=== PATIENT | female | born 1990 | race Caucasian/White ===

== ENCOUNTER 2018-11-15 10:49 | Emergency (ER) | payer MEDICAID ==
[~2018-11-15 10:49] MED LIST: CIPR2.5D18 RIGHTEYE; HYDR-4383 PO; ONDA4TAB12 PO; ONDA4TAB9 SL; OXYC-134 PO
== END 2018-11-15 12:58 | disposition left against medical advice (07) ==
LOC: ER 10:49
DX: L08.9 Local infection of the skin and subcutaneous tissue, unspecified (principal); Z53.21 Procedure and treatment not carried out due to patient leaving prior to being seen by health care provider

== ENCOUNTER 2019-04-18 20:20 | Emergency (ER) | payer MEDICAID ==
[~2019-04-18] VITALS: Ht 175.3 cm; Wt 143.8 kg
[2019-04-18 21:17] LABS: BASOPHILS # (AUTO) 0.1 X10'3 (0-0.2); BASOPHILS % (AUTO) 0.5 % (0-1); EOSINOPHILS % (AUTO) 0.1 % (0-6); HEMATOCRIT 44.5 % (35.0-45.0); LYMPHOCYTES # (AUTO) 1.2 X10'3 (1.1-4.8); MEAN CORPUSCULAR HEMOGLOBIN 30.3 PG (27.0-31.0); MEAN CORPUSCULAR HGB CONC 33.7 g/dL (33.0-36.5); MEAN CORPUSCULAR VOLUME 89.9 FL (78-98); MEAN PLATELET VOLUME 8.4 FL (7.4-10.4); MONOCYTES # (AUTO) 0.3 X10'3 (0-0.9); MONOCYTES % (AUTO) 2.1 % (2-12); NEUTROPHILS # (AUTO) 13.2 X10'3 (1.8-7.7); NEUTROPHILS % (AUTO) 89.3 % (42-75); PLATELET COUNT 332 X10'3 (140-440); RED BLOOD COUNT 4.95 X10'6 (4.20-5.60); RED CELL DISTRIBUTION WIDTH 13.3 % (11.5-14.5); WHITE BLOOD COUNT 14.8 X10'3 (4.5-11.0)
[2019-04-18 21:23] LABS: URINE HCG NEGATIVE (NEG)
[2019-04-18 21:28] LABS: CLARITY,URINE TURBID (Clear); COLOR,URINE YELLOW (Yellow); GLUCOSE, URINE NEGATIVE (Neg); KETONES,URINE 15 mg/dl (Neg); LEUKOCYTE ESTERASE ,URINE NEGATIVE (Neg); NITRITES, URINE NEGATIVE (Neg); OCCULT BLOOD,URINE LARGE (Neg); PH,URINE 5.5 (4.8-8.0); PROTEIN,URINE TRACE mg/dl (Neg); UROBILINOGEN,URINE 0.2 E.U/dL (0.2-1.0)
[2019-04-18 21:29] LABS: ALANINE AMINOTRANSFERASE 32 U/L (12-78); ALBUMIN 4.2 G/DL (3.4-5.0); ALKALINE PHOSPHATASE 63 IU/L (46-116); ANION GAP 12 (8-16); ASPARTATE AMINO TRANSFERASE 13 U/L (10-37); BILIRUBIN,TOTAL 0.4 MG/DL (0.1-1.0); BLOOD UREA NITROGEN 13 MG/DL (7-18); BUN/CREATININE RATIO 12.9 (6.6-38.0); CALCIUM 8.8 MG/DL (8.5-10.1); CHLORIDE 102 MMOL/L (99-107); CREATININE 1.01 MG/DL (0.40-0.90); GLUCOSE 144 MG/DL (70-104); POTASSIUM 4.2 MMOL/L (3.5-5.1); SODIUM 137 MMOL/L (135-145); TOTAL CARBON DIOXIDE 23.2 MMOL/L (24-32); TOTAL PROTEIN 8.4 G/DL (6.4-8.2); eGFR 65 ML/MIN
[2019-04-18 21:37] LABS: UA COLLECTION TYPE CLN CATCH MIDSTREAM
[2019-04-18 21:42] LABS: BACTERIA,URINE NONE SEEN /HPF (Neg); RBC,URINE 0-2 /HPF (0-2); SQUAMOUS EPITHELIAL CELL,UR FEW /LPF (FEW); WBC,URINE NONE SEEN /HPF (0-4)
[2019-04-18 21:43] LABS: AMORPHOUS URATES 4+
[2019-04-18] MEDS ORDERED: ketorolac trometh. 30mg/ml inj. IV ONE (23:05)
[2019-04-18] MEDS ORDERED: ondansetron/PF 4mg/2ml inj IV ONE (23:05)
[2019-04-18] MEDS ORDERED: morphine 4 MG/ML inj SYRINge IV ONE (23:05)
[2019-04-18] MEDS ORDERED: normal saline 1000ml 1,000 ML IV ONE (23:05)
[2019-04-18] MEDS ORDERED: ONDA8TAB6 PO (23:10)
[2019-04-18] MEDS ORDERED: HYDR-3965 PO (23:10)
[2019-04-18 23:38] VITALS: BP 134/67
== END 2019-04-18 23:44 | disposition home or self-care (01) ==
LOC: ER 20:21
DX: R10.9 Unspecified abdominal pain (principal); Z79.2 Long term (current) use of antibiotics; Z79.899 Other long term (current) drug therapy
CPT/HCPCS: 36415; 80053; 81001; 81025; 85025; 85610; 96374; 96375; 99283; J1885; J2270; J2405; J7030

== ENCOUNTER 2022-11-02 09:17 | Inpatient (IN) | payer MEDICAID ==
[~2022-11-02] VITALS: Ht 175.3 cm; Wt 131.8 kg
[2022-11-02] VITALS (17 sets, daily range): BP systolic 110–155; BP diastolic 46–82
[~2022-11-02 09:17] MED LIST changes: +CIPR2.5D14 RIGHTEYE; -CIPR2.5D18 RIGHTEYE; +ONDA8TAB6 PO
[2022-11-02 09:49] LABS: BASOPHILS # (AUTO) 0.1 X10'3 (0-0.2); BASOPHILS % (AUTO) 0.7 % (0-1); EOSINOPHILS # (AUTO) 0.1 X10'3 (0-0.9); EOSINOPHILS % (AUTO) 0.4 % (0-6); HEMATOCRIT 44.5 % (35.0-45.0); HEMOGLOBIN 14.4 g/dl (12.0-16.0); LYMPHOCYTES # (AUTO) 2.6 X10'3 (1.1-4.8); LYMPHOCYTES % (AUTO) 18.1 % (21-51); MEAN CORPUSCULAR HGB CONC 32.3 g/dL (33.0-36.5); MEAN CORPUSCULAR VOLUME 89.7 FL (78-98); MONOCYTES # (AUTO) 0.9 X10'3 (0-0.9); MONOCYTES % (AUTO) 6.2 % (2-12); NEUTROPHILS # (AUTO) 10.8 X10'3 (1.8-7.7); NEUTROPHILS % (AUTO) 74.6 % (42-75); PLATELET COUNT 312 X10'3 (140-440); RED BLOOD COUNT 4.95 X10'6 (4.20-5.60); RED CELL DISTRIBUTION WIDTH 12.9 % (11.5-14.5); WHITE BLOOD COUNT 14.5 X10'3 (4.5-11.0)
[2022-11-02 09:51] LABS: URINE HCG NEGATIVE (NEG)
[2022-11-02 09:53] LABS: CLARITY,URINE CLOUDY (Clear); COLOR,URINE YELLOW (Yellow); GLUCOSE, URINE NEGATIVE (Neg); KETONES,URINE >=80 mg/dl (Neg); LEUKOCYTE ESTERASE ,URINE NEGATIVE (Neg); NITRITES, URINE NEGATIVE (Neg); OCCULT BLOOD,URINE MODERATE (Neg); PH,URINE 5.5 (4.8-8.0); PROTEIN,URINE TRACE mg/dl (Neg); UROBILINOGEN,URINE 0.2 E.U/dL (0.2-1.0)
[2022-11-02 09:55] LABS: UA COLLECTION TYPE CLN CATCH MIDSTREAM
[2022-11-02 09:58] LABS: AMORPHOUS URATES 3+
[2022-11-02 09:59] LABS: SQUAMOUS EPITHELIAL CELL,UR MANY /LPF (FEW); WBC,URINE 0-4 /HPF (0-4)
[2022-11-02 10:01] LABS: BACTERIA,URINE 1+ /HPF (Neg); HYALINE CASTS 0-3 /LPF (NEGATIVE); RBC,URINE NONE SEEN /HPF (0-2)
[2022-11-02 10:03] LABS: ALANINE AMINOTRANSFERASE 30 U/L (12-78); ALBUMIN 4.3 G/DL (3.4-5.0); ALBUMIN/GLOBULIN RATIO 1.1 (1.1-1.5); ALKALINE PHOSPHATASE 61 IU/L (46-116); ANION GAP 10 (8-16); ASPARTATE AMINO TRANSFERASE 22 U/L (10-37); BILIRUBIN,TOTAL 0.6 MG/DL (0.1-1.0); BLOOD UREA NITROGEN 14 MG/DL (7-18); BUN/CREATININE RATIO 17.5 (6.6-38.0); CALCIUM 9.2 MG/DL (8.5-10.1); CHLORIDE 102 MMOL/L (99-107); GLUCOSE 123 MG/DL (70-104); LIPASE 218 U/L (73-393); POTASSIUM 3.6 MMOL/L (3.5-5.1); SODIUM 136 MMOL/L (135-145); TOTAL CARBON DIOXIDE 24.2 MMOL/L (24-32); TOTAL PROTEIN 8.3 G/DL (6.4-8.2); eGFR 83 ML/MIN
[2022-11-02] MEDS ORDERED: ketorolac trometh. 30mg/ml inj. IV ONE (10:35)
[2022-11-02] MEDS ORDERED: ondansetron/PF 4mg/2ml inj IV ONE (10:55)
[2022-11-02] MEDS ORDERED: piperacillin/tazo 3.375gm/50ml 50 ML IV ONE (11:40)
[2022-11-02] MEDS ORDERED: morphine 4 MG/ML inj SYRINge IV PRN ×2 (11:40→14:20)
[2022-11-02] MEDS ORDERED: normal saline 1000ML IV soln IV ONE (11:40)
[2022-11-02] MEDS ORDERED: magnesium 4gm in 100ml NS 100 ML IV PRN (12:20)
[2022-11-02] MEDS ORDERED: potassium Cl 20 mEq SR tablet PO PRN (12:20)
[2022-11-02] MEDS: normal saline 1000ml 1,000 ML IV SCH ×2 (12:20→21:00)
[2022-11-02] MEDS ORDERED: acetaminophen 325mg tablet PO PRN (12:20)
[2022-11-02] MEDS ORDERED: potassium Cl 40MEQ/1/2NS 520ml 520 ML IV PRN (12:20)
[2022-11-02 13:03] LABS: MAGNESIUM 1.8 MG/DL (1.5-2.4)
[2022-11-02] MEDS ORDERED: fentaNYL/PF 50MCG/1 ML 2ML syringe IV PRN ×2 (14:20)
[2022-11-02] MEDS ORDERED: ringers solution, lacted 1,000 ML IV ONE (14:20)
[2022-11-02] MEDS ORDERED: ondansetron/PF 4mg/2ml inj IV PRN (14:20)
[2022-11-02] MEDS ORDERED: morphine 2 MG/ML inj. syringe IV PRN (14:20)
[2022-11-02] MEDS ORDERED: hydrALAZINE 20mg/ml inj. IV PRN (14:20)
[2022-11-02] MEDS ORDERED: ringers solution, lacted 1,000 ML IV SCH (14:20)
[2022-11-02] MEDS ORDERED: labetalol 20mg/4ml (5mg/ml) syringe IV PRN (14:20)
[2022-11-02] MEDS ORDERED: CHOL10008 PO (15:55)
[2022-11-02] MEDS ORDERED: MULT-1219 PO (15:55)
[2022-11-02] MEDS ORDERED: piperacillin/tazo 4.5gm/100ml 100 ML IV SCH (16:00)
--- NOTE | 2022-11-02 16:02 | NUR ---
Patient in room ED 9. I have received report from Ely in the ED and had the opportunity to ask questions and assume patient care.
[2022-11-02] MEDS ORDERED: BUPIVAcaine 0.5% inj/PF 30 ML ONE (17:19)
[2022-11-02] MEDS ORDERED: BUPIVACAINE liposomal/PF 13.3 MG/ML vial IM ONE ×2 (17:20→19:06)
--- NOTE | 2022-11-02 17:34 | NUR ---
OR staff taking patient to the OR now.
[2022-11-02] MEDS ORDERED: ondansetron/PF 4mg/2ml inj ONE (17:53)
[2022-11-02] MEDS ORDERED: sevoflurane 250ml liquid IH ONE (17:53)
[2022-11-02] MEDS ORDERED: labetalol 20mg/4ml (5mg/ml) syringe IV ONE ×2 (17:53→19:08)
[2022-11-02] MEDS ORDERED: MIDAZolam 1 MG/ML 5ML VIAL ONE (18:02)
[2022-11-02] MEDS ORDERED: fentaNYL/PF 50MCG/1 ML 2ML syringe ONE ×2 (18:02→18:58)
[2022-11-02] MEDS ORDERED: dexamethasone sod phosphate 4mg/ml inj. ONE (18:07)
[2022-11-02] MEDS ORDERED: propofol inj 20 ML IV ONE (18:08)
[2022-11-02] MEDS ORDERED: rocuronium 10mg/ml inj IV ONE ×3 (18:09→19:10)
--- NOTE | 2022-11-02 18:14 | NUR ---
Problems reprioritized. Patient report given, questions answered & plan of care reviewed with
[2022-11-02] MEDS ORDERED: sugammadex 200mg/2ml injection IV ONE (18:20)
[2022-11-02] MEDS ORDERED: ceFOXitin 1000 MG inj ONE ×2 (18:33)
[2022-11-02] MEDS ORDERED: succinylcholine 20mg/ml inj IV ONE (18:33)
--- NOTE | 2022-11-02 18:36 | NUR ---
Patient in room [facility]. I have received report from OKSANA Kemp and had the opportunity to ask questions and assume patient care.
[2022-11-02] MEDS ORDERED: hydrALAZINE 20mg/ml inj. IV ONE (18:43)
[2022-11-02] MEDS ORDERED: morphine 10mg/ml inj. ONE (18:58)
[2022-11-02] MEDS ORDERED: BUPIVAcaine 0.5% inj/PF 30 ml vial IJ ONE (19:08)
--- NOTE | 2022-11-02 19:56 | NUR ---
Received from OR via hospital bed, accompanied by Anesthesiologist and report given by JULIO C Anesthesiologist. PATIENT WAKING UP, C/O ABDOMEN PAIN 8/10, V/S WNL, SCD ON, PIV 20G RIGHT AC AND RIGHT HAND, DERMABONDED LAPS SITES CLOSED CDI TO ABDOMEN. Addendum: 11/02/22 at 2011 by Alfa Loja RN Amended: Links added. Addendum: 11/02/22 at 2037 by Alfa Loja RN Received from OR via hospital bed, accompanied by Anesthesiologist and report given by JULIO C Anesthesiologist. PATIENT WAKING UP, C/O ABDOMEN PAIN 8/10, V/S WNL, SCD ON, PIV 20G RIGHT AC AND RIGHT HAND, DERMABONDED LAPS SITES CLOSED CDI TO ABDOMEN. RIGHT NG TUBE NOTED.
[2022-11-02] MEDS ORDERED: naloxone 0.4 mg/ml inj IV PRN (20:00)
[2022-11-02] MEDS: K and/or MAG REPLACEMENT MC SCH (20:00)
[2022-11-02] MEDS ORDERED: acetaminophen 1,000mg/100ml IV 100 ML IV ONE (20:05)
--- NOTE | 2022-11-02 20:35 | NUR ---
Patient in room [facility]. I have received report from OKSANA Gordon and had the opportunity to ask questions and assume patient care.
--- NOTE | 2022-11-02 20:56 | NUR ---
PATIENT HAS MET ALL CRITERIA FOR TRANSFER TO THE SURGICAL FLOOR. VSS. DRESSINGS INTACT. BED LOW, CALL LIGHT PRESENT AND 2 RAILS UP. RN PRESENT TO ACCEPT CARE OF PATIENT AND REPORT HAS BEEN CALLED. ALL QUESTIONS ANSWERED TO ACCEPTING RN. Addendum: 11/02/22 at 2101 by Alfa Loja RN Amended: Links added.
[2022-11-02] MEDS: diatr meglu/diatrizoate 30ml oral sol.-(3 dose) bottle PO SCH (21:53)
[2022-11-02] MEDS: piperacillin/tazo 4.5gm/100ml 100 ML IV SCH (21:53)
[2022-11-02] MEDS: docusate sod 100mg capsule PO SCH (22:01)
[2022-11-03] MEDS: ceFOXitin inj 1,000 MG in normal saline 100ml IV soln 100 ML IV SCH ×2 (00:34→07:31)
[2022-11-03 00:45] VITALS: BP 132/60
[2022-11-03] MEDS: HYDROcodone/acetaminophen 5mg/325mg tablet PO PRN ×3 (01:54→23:09)
[2022-11-03 02:00] VITALS: BP 134/66
[2022-11-03] MEDS: piperacillin/tazo 4.5gm/100ml 100 ML IV SCH ×3 (04:12→19:28)
[2022-11-03] MEDS ORDERED: famotidine/PF 10 mg/ml inj IV ONE ×2 (05:50→06:00)
[2022-11-03 06:00] VITALS: BP 129/66
[2022-11-03 06:00] LABS: BASOPHILS % (AUTO) 0.2 % (0-1); EOSINOPHILS % (AUTO) 0 % (0-6); HEMATOCRIT 37.5 % (35.0-45.0); HEMOGLOBIN 12.8 g/dl (12.0-16.0); LYMPHOCYTES # (AUTO) 1.2 X10'3 (1.1-4.8); MEAN CORPUSCULAR HEMOGLOBIN 30.4 PG (27.0-31.0); MEAN CORPUSCULAR HGB CONC 34.1 g/dL (33.0-36.5); MEAN CORPUSCULAR VOLUME 89.1 FL (78-98); MEAN PLATELET VOLUME 8.2 FL (7.4-10.4); MONOCYTES # (AUTO) 0.6 X10'3 (0-0.9); MONOCYTES % (AUTO) 5.4 % (2-12); NEUTROPHILS # (AUTO) 8.8 X10'3 (1.8-7.7); NEUTROPHILS % (AUTO) 83.4 % (42-75); PLATELET COUNT 238 X10'3 (140-440); RED BLOOD COUNT 4.21 X10'6 (4.20-5.60); RED CELL DISTRIBUTION WIDTH 13.3 % (11.5-14.5); WHITE BLOOD COUNT 10.5 X10'3 (4.5-11.0)
[2022-11-03 06:25] LABS: ALANINE AMINOTRANSFERASE 25 U/L (12-78); ALBUMIN 3.4 G/DL (3.4-5.0); ALKALINE PHOSPHATASE 48 IU/L (46-116); ANION GAP 10 (8-16); ASPARTATE AMINO TRANSFERASE 15 U/L (10-37); BILIRUBIN,TOTAL 0.5 MG/DL (0.1-1.0); BLOOD UREA NITROGEN 10 MG/DL (7-18); BUN/CREATININE RATIO 13.5 (6.6-38.0); CALCIUM 8.3 MG/DL (8.5-10.1); CHLORIDE 104 MMOL/L (99-107); CREATININE 0.74 MG/DL (0.40-0.90); GLUCOSE 131 MG/DL (70-104); MAGNESIUM 1.9 MG/DL (1.5-2.4); POTASSIUM 3.6 MMOL/L (3.5-5.1); SODIUM 138 MMOL/L (135-145); TOTAL CARBON DIOXIDE 24.2 MMOL/L (24-32); TOTAL PROTEIN 6.7 G/DL (6.4-8.2); eGFR > 90 ML/MIN
--- NOTE | 2022-11-03 06:38 | NUR ---
Problems reprioritized. Patient report given, questions answered & plan of care reviewed with OKSANA Magallon.
--- NOTE | 2022-11-03 06:49 | NUR ---
Patient in room [facility]. I have received report from Demetria GANDHI and had the opportunity to ask questions and assume patient care.
[2022-11-03] MEDS: diatr meglu/diatrizoate 30ml oral sol.-(3 dose) bottle PO SCH (07:25)
[2022-11-03] MEDS: docusate sod 100mg capsule PO SCH ×2 (07:32→19:28)
[2022-11-03] MEDS: K and/or MAG REPLACEMENT MC SCH ×2 (07:35→19:23)
[2022-11-03] MEDS: normal saline 1000ml 1,000 ML IV SCH ×3 (07:42→23:11)
[2022-11-03 10:00] VITALS: BP 125/68
--- NOTE | 2022-11-03 14:11 | NUR ---
NG discontinued removed per MD order. Patient tolerated well, no complications noted. 350cc of light green/clear output noted.
[2022-11-03 18:00] VITALS: BP 115/61
[2022-11-03] MEDS: HYDROmorphone 1 mg/ml syringe IV PRN (18:13)
--- NOTE | 2022-11-03 18:23 | NUR ---
I have reviewed and agree with all interventions, assessments performed and documented by SARAH MCDONALD.
--- NOTE | 2022-11-03 18:56 | NUR ---
Problems reprioritized. Patient report given, questions answered & plan of care reviewed with Alanna GANDHI.
[2022-11-03 22:00] VITALS: BP 113/54
[2022-11-04] MEDS: piperacillin/tazo 4.5gm/100ml 100 ML IV SCH ×3 (03:22→20:17)
[2022-11-04] MEDS: HYDROmorphone 1 mg/ml syringe IV PRN (03:22)
[2022-11-04 06:02] LABS: BASOPHILS % (AUTO) 0.4 % (0-1); EOSINOPHILS # (AUTO) 0.1 X10'3 (0-0.9); EOSINOPHILS % (AUTO) 1.5 % (0-6); HEMOGLOBIN 11.9 g/dl (12.0-16.0); LYMPHOCYTES # (AUTO) 1.9 X10'3 (1.1-4.8); LYMPHOCYTES % (AUTO) 21.3 % (21-51); MEAN CORPUSCULAR HEMOGLOBIN 30.9 PG (27.0-31.0); MEAN CORPUSCULAR HGB CONC 34.1 g/dL (33.0-36.5); MEAN CORPUSCULAR VOLUME 90.6 FL (78-98); MEAN PLATELET VOLUME 8.2 FL (7.4-10.4); MONOCYTES # (AUTO) 0.6 X10'3 (0-0.9); MONOCYTES % (AUTO) 6.6 % (2-12); NEUTROPHILS # (AUTO) 6.3 X10'3 (1.8-7.7); NEUTROPHILS % (AUTO) 70.2 % (42-75); PLATELET COUNT 197 X10'3 (140-440); RED BLOOD COUNT 3.87 X10'6 (4.20-5.60); RED CELL DISTRIBUTION WIDTH 13.4 % (11.5-14.5); WHITE BLOOD COUNT 8.9 X10'3 (4.5-11.0)
[2022-11-04 06:14] LABS: ALANINE AMINOTRANSFERASE 22 U/L (12-78); ALBUMIN 3.3 G/DL (3.4-5.0); ALBUMIN/GLOBULIN RATIO 1.1 (1.1-1.5); ALKALINE PHOSPHATASE 49 IU/L (46-116); ANION GAP 4 (8-16); ASPARTATE AMINO TRANSFERASE 21 U/L (10-37); BILIRUBIN,TOTAL 0.8 MG/DL (0.1-1.0); BLOOD UREA NITROGEN 9 MG/DL (7-18); CALCIUM 7.9 MG/DL (8.5-10.1); CHLORIDE 105 MMOL/L (99-107); CREATININE 0.75 MG/DL (0.40-0.90); GLUCOSE 115 MG/DL (70-104); MAGNESIUM 2.1 MG/DL (1.5-2.4); POTASSIUM 3.1 MMOL/L (3.5-5.1); SODIUM 136 MMOL/L (135-145); TOTAL CARBON DIOXIDE 26.9 MMOL/L (24-32); TOTAL PROTEIN 6.2 G/DL (6.4-8.2); eGFR 90 ML/MIN
--- NOTE | 2022-11-04 06:28 | NUR ---
Problems reprioritized. Patient report given, questions answered & plan of care reviewed with Jojo SMITH. Addendum: 11/04/22 at 0628 by Alanna Huerta RN Amended: Links added.
[2022-11-04 06:30] VITALS: BP 116/70
--- NOTE | 2022-11-04 06:30 | NUR ---
Patient in room [facility]. I have received report from Alanna GANDHI and had the opportunity to ask questions and assume patient care.
[2022-11-04] MEDS: K and/or MAG REPLACEMENT MC SCH ×2 (07:48→20:00)
[2022-11-04] MEDS: potassium Cl 20 mEq SR tablet PO PRN ×3 (07:59→20:17)
[2022-11-04] MEDS: docusate sod 100mg capsule PO SCH ×2 (07:59→20:17)
[2022-11-04] MEDS: normal saline 1000ml 1,000 ML IV SCH ×2 (09:14→17:32)
--- NOTE | 2022-11-04 10:12 | NUR ---
Patient stated that she vomited after breakfast. She does feel nausea and Zofran was given IV by medical charge entry specialist. Patient is on clear liquid diet and MD advised to keep watch on how she tolerates her lunch.
[2022-11-04] MEDS: ondansetron/PF 4mg/2ml inj IV PRN (10:15)
[2022-11-04 10:43] VITALS: BP 138/81
[2022-11-04] MEDS: HYDROcodone/acetaminophen 5mg/325mg tablet PO PRN ×3 (13:33→21:45)
--- NOTE | 2022-11-04 14:42 | NUR ---
MANAGER COMMISSION documentation: I have reviewed and agree with all interventions, assessments performed and documented by Jojo Xiong LVN .
--- NOTE | 2022-11-04 17:37 | NUR ---
Student Medication Administration: For this medication-pass time frame, all medication were reviewed, dispensed, administered and documented per hospital policy by Jeremi Gil with Keerthi Ramírez Rn Instructor.
--- NOTE | 2022-11-04 18:21 | NUR ---
Problems reprioritized. Patient report given, questions answered & plan of care reviewed with Alanna GANDHI.
[2022-11-04 22:00] VITALS: BP 143/69
[2022-11-05 02:00] VITALS: BP 117/67
[2022-11-05] MEDS: piperacillin/tazo 4.5gm/100ml 100 ML IV SCH ×3 (04:13→20:37)
[2022-11-05] MEDS: HYDROcodone/acetaminophen 5mg/325mg tablet PO PRN ×5 (04:28→20:37)
[2022-11-05 04:57] LABS: BASOPHILS % (AUTO) 0.5 % (0-1); EOSINOPHILS # (AUTO) 0.2 X10'3 (0-0.9); EOSINOPHILS % (AUTO) 2.9 % (0-6); HEMATOCRIT 33.4 % (35.0-45.0); HEMOGLOBIN 11.4 g/dl (12.0-16.0); LYMPHOCYTES # (AUTO) 2.6 X10'3 (1.1-4.8); LYMPHOCYTES % (AUTO) 34.2 % (21-51); MEAN CORPUSCULAR HEMOGLOBIN 30.8 PG (27.0-31.0); MEAN CORPUSCULAR HGB CONC 34.2 g/dL (33.0-36.5); MEAN CORPUSCULAR VOLUME 90.1 FL (78-98); MEAN PLATELET VOLUME 8.5 FL (7.4-10.4); MONOCYTES # (AUTO) 0.5 X10'3 (0-0.9); MONOCYTES % (AUTO) 6.8 % (2-12); NEUTROPHILS # (AUTO) 4.2 X10'3 (1.8-7.7); NEUTROPHILS % (AUTO) 55.6 % (42-75); PLATELET COUNT 191 X10'3 (140-440); RED CELL DISTRIBUTION WIDTH 13.3 % (11.5-14.5); WHITE BLOOD COUNT 7.5 X10'3 (4.5-11.0)
[2022-11-05 05:41] LABS: ALANINE AMINOTRANSFERASE 30 U/L (12-78); ALKALINE PHOSPHATASE 47 IU/L (46-116); ANION GAP 7 (8-16); ASPARTATE AMINO TRANSFERASE 24 U/L (10-37); BILIRUBIN,TOTAL 0.7 MG/DL (0.1-1.0); BLOOD UREA NITROGEN 5 MG/DL (7-18); BUN/CREATININE RATIO 7.9 (6.6-38.0); CALCIUM 7.6 MG/DL (8.5-10.1); CHLORIDE 107 MMOL/L (99-107); CREATININE 0.63 MG/DL (0.40-0.90); GLUCOSE 98 MG/DL (70-104); MAGNESIUM 1.9 MG/DL (1.5-2.4); POTASSIUM 3.2 MMOL/L (3.5-5.1); SODIUM 138 MMOL/L (135-145); TOTAL CARBON DIOXIDE 24.2 MMOL/L (24-32); eGFR > 90 ML/MIN
--- NOTE | 2022-11-05 06:20 | NUR ---
Problems reprioritized. Patient report given, questions answered & plan of care reviewed with Madison/Brooke. Addendum: 11/05/22 at 0620 by Alanna Huerta RN Amended: Links added.
--- NOTE | 2022-11-05 06:51 | NUR ---
Patient in room [facility]. I have received report from [employer] and had the opportunity to ask questions and assume patient care.
[2022-11-05 07:23] VITALS: BP 140/66
[2022-11-05] MEDS: K and/or MAG REPLACEMENT MC SCH ×2 (08:00→20:00)
[2022-11-05] MEDS: multivitamins, therapeutics tablet PO SCH (08:00)
[2022-11-05] MEDS: potassium Cl 20 mEq SR tablet PO PRN ×3 (09:50→18:37)
[2022-11-05] MEDS: cholecalciferol (vitamin D3) 1,000 unit (25mcg) tablet PO SCH (09:51)
[2022-11-05] MEDS: docusate sod 100mg capsule PO SCH (09:51)
[2022-11-05] MEDS: normal saline 1000ml 1,000 ML IV SCH ×2 (09:53→13:10)
[2022-11-05 10:00] VITALS: BP 164/56
[2022-11-05] MEDS ORDERED: magnesium hydroxide 30ml (MOM) UD suspension PO ONE (10:20)
[2022-11-05] MEDS: HYDROmorphone 1 mg/ml syringe IV PRN ×3 (10:46→23:52)
--- NOTE | 2022-11-05 12:45 | NUR ---
Patient having abdominal pain states that it is hard to pee she has to bear down. Patient voided 100ml's then bladder scan showed 248ml's in bladder. Will continue to monitor.
--- NOTE | 2022-11-05 12:48 | NUR ---
Spoke to Dr Zuniga and asked if he wanted me to call Dr Tompkins regarding how much pain patient was in . Per Dr Nadia Tompkins is aware and no scans ordered. Dr Zuniga is aware patient received [place] and dilaudid for pain and is now nauseated. Received orders to give patient valium 5mg IV x1, and Zofran per orders
[2022-11-05] MEDS ORDERED: diazepam inj 5 MG/ML inj. IV ONE (12:50)
[2022-11-05] MEDS: ondansetron/PF 4mg/2ml inj IV PRN ×2 (12:56→20:36)
--- NOTE | 2022-11-05 13:04 | NUR ---
Called Dr Tompkins he is aware that patient is very painful and in tears. Patient has received [place], Dilaudid, Zofran and Valium 5mg IV. Per Dr Tompkins this is a very painful surgery and that is muscle pain. No orders for scan did receive orders to DC Colace and Milk of Mag. Will continue to monitor.
--- NOTE | 2022-11-05 14:16 | NUR ---
PAGER ID: [phone] MESSAGE: [phone]. pts 360a Giovanni K+ 3.2 protocol fell off can i restart?
[2022-11-05] MEDS ORDERED: potassium Cl 20 mEq SR tablet PO PRN (14:20)
[2022-11-05] MEDS ORDERED: magnesium 4gm in 100ml NS 100 ML IV PRN (14:20)
[2022-11-05] MEDS ORDERED: potassium Cl 40MEQ/1/2NS 520ml 520 ML IV PRN (14:20)
--- NOTE | 2022-11-05 16:02 | NUR ---
PAGER ID: [phone] MESSAGE: Elena davis [phone], Giovanni Hernandeza LATRICE trimble please call
[2022-11-05 18:20] VITALS: BP 138/81
--- NOTE | 2022-11-05 18:58 | NUR ---
Problems reprioritized. Patient report given, questions answered & plan of care reviewed with Alanna GANDHI.
[2022-11-05] MEDS ORDERED: ketorolac trometh. 30mg/ml inj. IV PRN (21:50)
[2022-11-05] MEDS: ketorolac tromethamine 15mg/ml inj. IV PRN (21:53)
[2022-11-05 22:00] VITALS: BP 136/73
--- NOTE | 2022-11-05 22:30 | NUR ---
Unable to obtain a 2nd IV for pts Protonix gtt, several attempts. Addendum: 11/06/22 at 0013 by Alanna Huerta RN Amended: Links added.
[2022-11-06] MEDS: pantoprazole 40MG/NS 100ML BAG 100 ML IV SCH ×2 (00:32→08:59)
[2022-11-06] MEDS ORDERED: LORazepam 2 mg/ml vial IV PRN ×2 (00:50)
[2022-11-06] MEDS ORDERED: LORazepam 1 MG tablet PO PRN (00:50)
--- NOTE | 2022-11-06 00:54 | NUR ---
Dr Mccray notified pt having pain and she is requesting Valium. Dr vivek Hager to see if that will work before increasing pain meds. Addendum: 11/06/22 at 0054 by Alanna Huerta RN Amended: Links added.
--- NOTE | 2022-11-06 02:31 | NUR ---
Patient resting eyes closed.
[2022-11-06] MEDS: piperacillin/tazo 4.5gm/100ml 100 ML IV SCH ×3 (03:50→18:58)
[2022-11-06] MEDS: ketorolac tromethamine 15mg/ml inj. IV PRN ×2 (03:50→17:36)
[2022-11-06 04:17] LABS: BASOPHILS % (AUTO) 0.1 % (0-1); EOSINOPHILS % (AUTO) 0 % (0-6); HEMATOCRIT 43.7 % (35.0-45.0); HEMOGLOBIN 14.3 g/dl (12.0-16.0); LYMPHOCYTES # (AUTO) 1.6 X10'3 (1.1-4.8); LYMPHOCYTES % (AUTO) 10.2 % (21-51); MEAN CORPUSCULAR HEMOGLOBIN 29.6 PG (27.0-31.0); MEAN CORPUSCULAR HGB CONC 32.7 g/dL (33.0-36.5); MEAN CORPUSCULAR VOLUME 90.5 FL (78-98); MEAN PLATELET VOLUME 8.7 FL (7.4-10.4); MONOCYTES # (AUTO) 0.4 X10'3 (0-0.9); MONOCYTES % (AUTO) 2.7 % (2-12); NEUTROPHILS # (AUTO) 13.3 X10'3 (1.8-7.7); PLATELET COUNT 271 X10'3 (140-440); RED BLOOD COUNT 4.83 X10'6 (4.20-5.60); RED CELL DISTRIBUTION WIDTH 13.4 % (11.5-14.5); WHITE BLOOD COUNT 15.3 X10'3 (4.5-11.0)
[2022-11-06 05:03] LABS: ALANINE AMINOTRANSFERASE 32 U/L (12-78); ALBUMIN 3.1 G/DL (3.4-5.0); ALKALINE PHOSPHATASE 46 IU/L (46-116); ANION GAP 11 (8-16); ASPARTATE AMINO TRANSFERASE 17 U/L (10-37); BILIRUBIN,TOTAL 1.2 MG/DL (0.1-1.0); BLOOD UREA NITROGEN 8 MG/DL (7-18); BUN/CREATININE RATIO 11.8 (6.6-38.0); CALCIUM 8.4 MG/DL (8.5-10.1); CHLORIDE 106 MMOL/L (99-107); CREATININE 0.68 MG/DL (0.40-0.90); GLUCOSE 116 MG/DL (70-104); MAGNESIUM 2.4 MG/DL (1.5-2.4); POTASSIUM 3.6 MMOL/L (3.5-5.1); SODIUM 138 MMOL/L (135-145); TOTAL PROTEIN 6.3 G/DL (6.4-8.2); eGFR > 90 ML/MIN
[2022-11-06 05:26] LABS: PLATELET ESTIMATE NORMAL; TOTAL CELLS COUNTED 100; TOXIC GRANULATION 1+
[2022-11-06] MEDS: HYDROmorphone 1 mg/ml syringe IV PRN ×3 (06:01→20:24)
[2022-11-06] MEDS: normal saline 1000ml 1,000 ML IV SCH ×3 (06:20→18:59)
--- NOTE | 2022-11-06 06:24 | NUR ---
Problems reprioritized. Patient report given, questions answered & plan of care reviewed with Layla GANDHI. Addendum: 11/06/22 at 0624 by Alanna Huerta RN Amended: Links added.
[2022-11-06 07:00] VITALS: BP 134/85
[2022-11-06] MEDS: K and/or MAG REPLACEMENT MC SCH ×2 (08:00→20:00)
[2022-11-06] MEDS: cholecalciferol (vitamin D3) 1,000 unit (25mcg) tablet PO SCH (08:59)
[2022-11-06] MEDS: multivitamins, therapeutics tablet PO SCH (08:59)
[2022-11-06] MEDS: HYDROcodone/acetaminophen 5mg/325mg tablet PO PRN ×3 (09:09→18:59)
--- NOTE | 2022-11-06 10:19 | NUR ---
Permission to s/w Dad. Willy Answered all questions satisfactorily. Addendum: 11/06/22 at 1036 by Layla Camacho RN [phone]: Faxed CT screening form to [phone] & placed in chart Addendum: 11/06/22 at 1527 by Layla Camacho RN 1326: marti Aguilera called again. OKSANA reenforced one call per shift per patient, no updates until tomorrow pending oral contrast and CT. Willy verbalized understanding
[2022-11-06 12:00] VITALS: BP 145/94
--- NOTE | 2022-11-06 15:17 | NUR ---
Pt ambulated 5x loops around unit. Did not tolerate well (dyspnea, pain 8/10)
--- NOTE | 2022-11-06 17:55 | NUR ---
pt has bandaids + steristrips over lapsitesx4. Edges approximated, dressing clean dry & intact
[2022-11-06 18:00] VITALS: BP 154/85
[2022-11-06] MEDS: diatr meglu/diatrizoate 30ml oral sol.-(3 dose) bottle PO SCH (20:24)
[2022-11-06 22:00] VITALS: BP 131/78
[2022-11-07] VITALS (7 sets, daily range): BP systolic 131–161; BP diastolic 73–94
[2022-11-07] MEDS: HYDROmorphone 1 mg/ml syringe IV PRN ×5 (00:29→17:43)
[2022-11-07] MEDS: piperacillin/tazo 4.5gm/100ml 100 ML IV SCH ×3 (03:35→22:00)
--- NOTE | 2022-11-07 04:30 | NUR ---
PT IS VOIDING HAD 400CC OUT ON THIS SHIFT SO FAR. BLADDER SCANNED THE PT AND SHE HAD 268CC IN BLADDER. CHARGE NURSE MADE AWARE.
[2022-11-07 05:58] LABS: BASOPHILS % (AUTO) 0.1 % (0-1); EOSINOPHILS % (AUTO) 0.2 % (0-6); HEMOGLOBIN 13.5 g/dl (12.0-16.0); LYMPHOCYTES # (AUTO) 1.1 X10'3 (1.1-4.8); LYMPHOCYTES % (AUTO) 8.2 % (21-51); MEAN CORPUSCULAR HEMOGLOBIN 29.7 PG (27.0-31.0); MEAN CORPUSCULAR HGB CONC 32.8 g/dL (33.0-36.5); MEAN CORPUSCULAR VOLUME 90.7 FL (78-98); MEAN PLATELET VOLUME 8.7 FL (7.4-10.4); MONOCYTES # (AUTO) 0.5 X10'3 (0-0.9); MONOCYTES % (AUTO) 4.1 % (2-12); NEUTROPHILS # (AUTO) 11.7 X10'3 (1.8-7.7); NEUTROPHILS % (AUTO) 87.4 % (42-75); PLATELET COUNT 265 X10'3 (140-440); RED BLOOD COUNT 4.53 X10'6 (4.20-5.60); RED CELL DISTRIBUTION WIDTH 13.8 % (11.5-14.5); WHITE BLOOD COUNT 13.4 X10'3 (4.5-11.0)
[2022-11-07 06:15] LABS: ALANINE AMINOTRANSFERASE 20 U/L (12-78); ALBUMIN 2.5 G/DL (3.4-5.0); ALBUMIN/GLOBULIN RATIO 0.7 (1.1-1.5); ALKALINE PHOSPHATASE 50 IU/L (46-116); ANION GAP 10 (8-16); ASPARTATE AMINO TRANSFERASE 11 U/L (10-37); BLOOD UREA NITROGEN 14 MG/DL (7-18); BUN/CREATININE RATIO 20.3 (6.6-38.0); CALCIUM 8.1 MG/DL (8.5-10.1); CHLORIDE 105 MMOL/L (99-107); CREATININE 0.69 MG/DL (0.40-0.90); GLUCOSE 108 MG/DL (70-104); POTASSIUM 3.8 MMOL/L (3.5-5.1); SODIUM 136 MMOL/L (135-145); TOTAL CARBON DIOXIDE 20.8 MMOL/L (24-32); TOTAL PROTEIN 6.1 G/DL (6.4-8.2); eGFR > 90 ML/MIN
--- NOTE | 2022-11-07 06:44 | NUR ---
Problems reprioritized. Patient report given, questions answered & plan of care reviewed with OKSANA KO. Addendum: 11/07/22 at 0653 by Ashleigh Shaver RN OKSANA MADE AWARE OF HR TRENDS
[2022-11-07] MEDS: K and/or MAG REPLACEMENT MC SCH ×2 (07:43→20:00)
[2022-11-07] MEDS: multivitamins, therapeutics tablet PO SCH (08:00)
[2022-11-07] MEDS: cholecalciferol (vitamin D3) 1,000 unit (25mcg) tablet PO SCH (08:00)
[2022-11-07] MEDS: pantoprazole 40MG/NS 100ML BAG 100 ML IV SCH (08:39)
[2022-11-07] MEDS: diatr meglu/diatrizoate 30ml oral sol.-(3 dose) bottle PO SCH ×2 (08:40→10:42)
[2022-11-07] MEDS ORDERED: iohexol 300mg/ml 100ml inj. ONE (08:45)
--- NOTE | 2022-11-07 11:43 | NUR ---
Pt's dad, Willy, called to inquire about pts status, asking to talk to the RN. Pt's RN, Christine, was unavailable, and call was transfered to pt, per her permission. Addendum: 11/07/22 at 1149 by Susana Ring RN Dad's (Willy's) phone number is [phone].
[2022-11-07] MEDS: normal saline 1000ml 1,000 ML IV SCH ×2 (13:10→17:49)
--- NOTE | 2022-11-07 13:17 | NUR ---
AGER ID: [phone] MESSAGE: [id number] TYRONE Paula, CAN I GIVE HER ICE CHIPS, OR A DIET? STEFANI [id number]
--- NOTE | 2022-11-07 17:46 | NUR ---
Dr. Ridley in to see patient. Patient will be going to surgery tonight sometime.
[2022-11-07] MEDS ORDERED: sevoflurane 250ml liquid IH ONE (21:28)
[2022-11-07] MEDS ORDERED: midazolam 1 mg/ML 2ml injection ONE (21:35)
[2022-11-07] MEDS ORDERED: fentaNYL /PF 50mcg/ml 5ml ampule ONE (21:40)
[2022-11-07] MEDS ORDERED: LIDOcaine 2% (20mg/ml) 5ml vial ONE (22:27)
[2022-11-07] MEDS ORDERED: dexamethasone sod phosphate 4mg/ml inj. ONE (22:27)
[2022-11-07] MEDS ORDERED: propofol inj 20 ML IV ONE ×2 (22:27)
[2022-11-07] MEDS ORDERED: ondansetron/PF 4mg/2ml inj ONE (22:27)
[2022-11-07] MEDS ORDERED: rocuronium 10mg/ml inj IV ONE ×2 (22:27)
[2022-11-07] MEDS ORDERED: metoprolol tartrate 1mg/ml inj IV ONE (22:27)
[2022-11-07] MEDS ORDERED: morphine 10mg/ml inj. ONE (23:04)
[2022-11-07] MEDS ORDERED: BUPIVAcaine/PF 5 mg/ml 10ml ONE (23:04)
[2022-11-07] MEDS ORDERED: BUPIVACAINE liposomal/PF 13.3 MG/ML vial IM ONE (23:04)
[2022-11-07] MEDS ORDERED: glycopyrrolate 0.2mg/ml inj ONE (23:47)
[2022-11-07] MEDS ORDERED: neostigmine methylsulfate 1 MG/ML 10ml vial ONE (23:48)
[2022-11-07] MEDS ORDERED: naloxone 0.4 mg/ml inj IV PRN ×2 (23:50→23:55)
--- NOTE | 2022-11-07 23:55 | NUR ---
Received from OR via BED, accompanied by Anesthesiologist DR GUEVARA and report given by Anesthesiologist AND COOKING SHOW HOST. PT DROWSY, DENIES PAIN. ABDOMEN W/LARGE ABD PADS AND GAUZE COVERING INCISION CDI. ANDREY TO BULB SX W/S/S DRAINAGE. BASS CATHETER TO GRAVITY DRAINAGE W/DARK YELLOW URINE IN DRAINAGE BAG. NGT TO RIGHT NARE TO LCS W/DARK GREEN DRAINAGE. Addendum: 11/08/22 at 0051 by Jesica Carney RN Amended: Links added.
[2022-11-08] VITALS (21 sets, daily range): BP systolic 128–184; BP diastolic 76–99
[2022-11-08] MEDS ORDERED: morphine 2 MG/ML inj. syringe IV PRN (00:05)
[2022-11-08] MEDS ORDERED: hydrALAZINE 20mg/ml inj. IV PRN (00:05)
[2022-11-08] MEDS ORDERED: ringers solution, lacted 1,000 ML IV SCH (00:05)
[2022-11-08] MEDS ORDERED: ketorolac trometh. 30mg/ml inj. IV ONE (00:05)
[2022-11-08] MEDS ORDERED: meperidine/PF 25mg/ml syringe IV PRN ×3 (00:05)
[2022-11-08] MEDS ORDERED: proCHLORperazine 10 MG/2 ml inj IV PRN (00:05)
[2022-11-08] MEDS ORDERED: ondansetron/PF 4mg/2ml inj IV PRN (00:05)
[2022-11-08] MEDS ORDERED: acetaminophen 1,000mg/100ml IV 100 ML IV PRN (00:05)
[2022-11-08] MEDS ORDERED: labetalol 20mg/4ml (5mg/ml) syringe IV PRN (00:05)
[2022-11-08] MEDS: morphine 4 MG/ML inj SYRINge IV PRN ×2 (00:16→00:35)
[2022-11-08] MEDS: HYDROmorph/NS 0.2 mg/ml PCA 100 ML IV SCH ×13 (01:00→23:00)
--- NOTE | 2022-11-08 01:25 | NUR ---
Report called to receiving nurse. Transferred via BED, NO Belongings. PT INSTRUCTED AND DEMONSTRATED USE OF DILAUDID CADD. RECEIVING RN AT BEDSIDE TO RECEIVE PT, BLL, CALL LIGHT GIVEN, SIDE RAILS UP X 2. Special Issues communicated to receiving nurse. YES. Addendum: 11/08/22 at 0133 by Jesica Carney RN Amended: Links added.
[2022-11-08] MEDS: piperacillin/tazo 4.5gm/100ml 100 ML IV SCH (04:08)
--- NOTE | 2022-11-08 06:15 | NUR ---
Received report from OKSANA Sotelo.
--- NOTE | 2022-11-08 06:58 | NUR ---
Problems reprioritized. Patient report given, questions answered & plan of care reviewed with OKSANA BRYSON.
[2022-11-08] MEDS: cholecalciferol (vitamin D3) 1,000 unit (25mcg) tablet PO SCH (07:09)
[2022-11-08] MEDS: pantoprazole 40MG/NS 100ML BAG 100 ML IV SCH (07:10)
[2022-11-08] MEDS: multivitamins, therapeutics tablet PO SCH (07:10)
[2022-11-08 07:29] LABS: BASOPHILS % (AUTO) 0 % (0-1); EOSINOPHILS % (AUTO) 0.1 % (0-6); HEMATOCRIT 36.6 % (35.0-45.0); HEMOGLOBIN 12.1 g/dl (12.0-16.0); LYMPHOCYTES # (AUTO) 0.6 X10'3 (1.1-4.8); LYMPHOCYTES % (AUTO) 4.3 % (21-51); MEAN CORPUSCULAR HEMOGLOBIN 29.9 PG (27.0-31.0); MEAN CORPUSCULAR HGB CONC 33.2 g/dL (33.0-36.5); MEAN CORPUSCULAR VOLUME 90.2 FL (78-98); MEAN PLATELET VOLUME 7.9 FL (7.4-10.4); MONOCYTES # (AUTO) 0.7 X10'3 (0-0.9); MONOCYTES % (AUTO) 4.9 % (2-12); NEUTROPHILS # (AUTO) 13.1 X10'3 (1.8-7.7); NEUTROPHILS % (AUTO) 90.7 % (42-75); PLATELET COUNT 264 X10'3 (140-440); RED BLOOD COUNT 4.05 X10'6 (4.20-5.60); RED CELL DISTRIBUTION WIDTH 13.3 % (11.5-14.5); WHITE BLOOD COUNT 14.4 X10'3 (4.5-11.0)
[2022-11-08 07:48] LABS: ALANINE AMINOTRANSFERASE 15 U/L (12-78); ALBUMIN/GLOBULIN RATIO 0.6 (1.1-1.5); ALKALINE PHOSPHATASE 46 IU/L (46-116); ANION GAP 9 (8-16); ASPARTATE AMINO TRANSFERASE 15 U/L (10-37); BILIRUBIN,TOTAL 0.6 MG/DL (0.1-1.0); BLOOD UREA NITROGEN 13 MG/DL (7-18); BUN/CREATININE RATIO 22.8 (6.6-38.0); CALCIUM 7.5 MG/DL (8.5-10.1); CHLORIDE 105 MMOL/L (99-107); CREATININE 0.57 MG/DL (0.40-0.90); GLUCOSE 132 MG/DL (70-104); POTASSIUM 3.7 MMOL/L (3.5-5.1); SODIUM 135 MMOL/L (135-145); TOTAL CARBON DIOXIDE 21.4 MMOL/L (24-32); TOTAL PROTEIN 5.5 G/DL (6.4-8.2); eGFR > 90 ML/MIN
[2022-11-08] MEDS: K and/or MAG REPLACEMENT MC SCH ×2 (08:00→19:31)
[2022-11-08] MEDS: normal saline 1000ml 1,000 ML IV SCH ×3 (10:58→23:12)
--- NOTE | 2022-11-08 13:19 | NUR ---
Removed NG tube per MD orders. Pt tolerated procedure well.
--- NOTE | 2022-11-08 14:16 | NUR ---
Initial: Pt presented with c/o abdominal pain with emesis. Per physician note "CT scan demonstrates a high-grade partial small bowel obstruction versus complete small bowel obstruction with small umbilical hernia". Pt POD #6 s/p repair of incarcerated umbilical hernia. Diet was advanced to clear then full liquids and pt averaged 70% PO intake. Pt now NPO POD #1 s/p exploratory laparotomy with small bowel resection d/t peritonitis with possible bowel perforation. Pt had an NGT in place which was removed today per EMR. Recommend advancing to low fiber diet as medically indicated and initiating nutrition support if expecting prolonged NPO status as pt now day 6 with insufficient nutrition. LBM 2/6. Will continue to follow closely. Recommendations: 1) Advance to low fiber diet as medically indicated 2) Initiate nutrition support if expected prolonged NPO status; pt day 6 with insufficient nutrient intake 3) Bowel care per physician 4) Scaled weight this admit; subsequent weekly scaled weights Addendum: 11/08/22 at [address] Amended: Links added.
[2022-11-08] MEDS: piperacillin/tazo 3.375gm/50ml 50 ML IV SCH (16:15)
--- NOTE | 2022-11-08 18:36 | NUR ---
gave report to jerry serrano
[2022-11-09] MEDS: HYDROmorph/NS 0.2 mg/ml PCA 100 ML IV SCH ×12 (01:00→21:53)
[2022-11-09] MEDS: normal saline 1000ml 1,000 ML IV SCH ×3 (05:52→21:05)
[2022-11-09 06:00] VITALS: BP 129/77
--- NOTE | 2022-11-09 06:00 | NUR ---
report received from zach GANDHI
--- NOTE | 2022-11-09 06:41 | NUR ---
Problems reprioritized. Patient report given, questions answered & plan of care reviewed with OKSANA NGUYEN.
[2022-11-09 07:22] LABS: BASOPHILS % (AUTO) 0.3 % (0-1); EOSINOPHILS # (AUTO) 0.2 X10'3 (0-0.9); EOSINOPHILS % (AUTO) 1.6 % (0-6); HEMOGLOBIN 10.3 g/dl (12.0-16.0); LYMPHOCYTES # (AUTO) 1.8 X10'3 (1.1-4.8); LYMPHOCYTES % (AUTO) 15.8 % (21-51); MEAN CORPUSCULAR HEMOGLOBIN 29.9 PG (27.0-31.0); MEAN CORPUSCULAR HGB CONC 33.3 g/dL (33.0-36.5); MEAN CORPUSCULAR VOLUME 89.9 FL (78-98); MEAN PLATELET VOLUME 7.9 FL (7.4-10.4); MONOCYTES # (AUTO) 0.8 X10'3 (0-0.9); MONOCYTES % (AUTO) 7.6 % (2-12); NEUTROPHILS # (AUTO) 8.3 X10'3 (1.8-7.7); NEUTROPHILS % (AUTO) 74.7 % (42-75); PLATELET COUNT 274 X10'3 (140-440); RED BLOOD COUNT 3.45 X10'6 (4.20-5.60); RED CELL DISTRIBUTION WIDTH 13.7 % (11.5-14.5); WHITE BLOOD COUNT 11.2 X10'3 (4.5-11.0)
[2022-11-09 07:43] LABS: ALANINE AMINOTRANSFERASE 20 U/L (12-78); ALBUMIN 1.9 G/DL (3.4-5.0); ALBUMIN/GLOBULIN RATIO 0.5 (1.1-1.5); ALKALINE PHOSPHATASE 48 IU/L (46-116); ANION GAP 8 (8-16); ASPARTATE AMINO TRANSFERASE 25 U/L (10-37); BILIRUBIN,TOTAL 0.4 MG/DL (0.1-1.0); BLOOD UREA NITROGEN 11 MG/DL (7-18); CALCIUM 7.6 MG/DL (8.5-10.1); CHLORIDE 105 MMOL/L (99-107); GLUCOSE 94 MG/DL (70-104); SODIUM 138 MMOL/L (135-145); TOTAL CARBON DIOXIDE 24.7 MMOL/L (24-32); TOTAL PROTEIN 5.6 G/DL (6.4-8.2); eGFR > 90 ML/MIN
[2022-11-09] MEDS: multivitamins, therapeutics tablet PO SCH (07:45)
[2022-11-09] MEDS: cholecalciferol (vitamin D3) 1,000 unit (25mcg) tablet PO SCH (07:45)
[2022-11-09] MEDS: K and/or MAG REPLACEMENT MC SCH ×2 (07:59→20:57)
[2022-11-09] MEDS: pantoprazole 40MG/NS 100ML BAG 100 ML IV SCH (08:25)
[2022-11-09] MEDS ORDERED: potassium Cl 20 mEq SR tablet PO PRN ×3 (08:50→10:00)
[2022-11-09] MEDS: piperacillin/tazo 3.375gm/50ml 50 ML IV SCH ×4 (09:05→23:53)
[2022-11-09] MEDS ORDERED: Potassium Cl inj 40 MEQ in sodium chloride 0.45% 500ml 500 ML IV ONE (09:55)
[2022-11-09 10:00] VITALS: BP 136/76
[2022-11-09] MEDS ORDERED: magnesium Cl slow-release 64mg tablet PO PRN (10:00)
[2022-11-09] MEDS ORDERED: potassium Cl 40MEQ/1/2NS 520ml 520 ML IV PRN (10:00)
[2022-11-09] MEDS ORDERED: magnesium 4gm in 100ml NS 100 ML IV PRN (10:00)
--- NOTE | 2022-11-09 15:26 | NUR ---
Patient ambulated with staff on [place] this afternoon
[2022-11-09 18:00] VITALS: BP 129/70
--- NOTE | 2022-11-09 18:00 | NUR ---
RN removed packing in pts incision and replaced with gauze/ ABD and secured with tape per verbal order from Dr Pandey. No drainage at this time will continue to monitor
--- NOTE | 2022-11-09 18:58 | NUR ---
report given to Amy GANDHI
--- NOTE | 2022-11-09 19:45 | NUR ---
Patient in room [facility]. I have received report from STEPHON GANDHI and had the opportunity to ask questions and assume patient care.
[2022-11-09] MEDS: enoxaparin 40mg/0.4ml syringe SUBCUT SCH (21:05)
--- NOTE | 2022-11-09 21:24 | NUR ---
cadd pump alarming empty. called RX -they are making a new bag. will call when ready
[2022-11-09] MEDS: PCA waste documentation MC SCH (21:53)
[2022-11-09 22:00] VITALS: BP 132/79
[2022-11-10] MEDS: HYDROmorph/NS 0.2 mg/ml PCA 100 ML IV SCH ×12 (01:00→23:00)
[2022-11-10] MEDS: normal saline 1000ml 1,000 ML IV SCH ×4 (01:52→21:52)
[2022-11-10 06:00] VITALS: BP 150/85
--- NOTE | 2022-11-10 06:32 | NUR ---
Problems reprioritized. Patient report given, questions answered & plan of care reviewed with PRATIBHA GANDHI.
--- NOTE | 2022-11-10 06:41 | NUR ---
Patient in room [facility]. I have received report from Amy and had the opportunity to ask questions and assume patient care.
[2022-11-10 06:43] LABS: BASOPHILS % (AUTO) 0.3 % (0-1); EOSINOPHILS # (AUTO) 0.3 X10'3 (0-0.9); EOSINOPHILS % (AUTO) 3.3 % (0-6); HEMATOCRIT 34.1 % (35.0-45.0); HEMOGLOBIN 11.3 g/dl (12.0-16.0); LYMPHOCYTES # (AUTO) 1.4 X10'3 (1.1-4.8); LYMPHOCYTES % (AUTO) 16.2 % (21-51); MEAN CORPUSCULAR HEMOGLOBIN 29.6 PG (27.0-31.0); MEAN CORPUSCULAR HGB CONC 33.1 g/dL (33.0-36.5); MEAN CORPUSCULAR VOLUME 89.4 FL (78-98); MEAN PLATELET VOLUME 7.6 FL (7.4-10.4); MONOCYTES # (AUTO) 0.8 X10'3 (0-0.9); MONOCYTES % (AUTO) 8.9 % (2-12); NEUTROPHILS # (AUTO) 6.1 X10'3 (1.8-7.7); NEUTROPHILS % (AUTO) 71.3 % (42-75); PLATELET COUNT 307 X10'3 (140-440); RED BLOOD COUNT 3.82 X10'6 (4.20-5.60); RED CELL DISTRIBUTION WIDTH 13.6 % (11.5-14.5); WHITE BLOOD COUNT 8.6 X10'3 (4.5-11.0)
[2022-11-10] MEDS: K and/or MAG REPLACEMENT MC SCH ×2 (06:45→20:00)
[2022-11-10 07:19] LABS: ALANINE AMINOTRANSFERASE 26 U/L (12-78); ALBUMIN 1.8 G/DL (3.4-5.0); ALBUMIN/GLOBULIN RATIO 0.5 (1.1-1.5); ALKALINE PHOSPHATASE 47 IU/L (46-116); ANION GAP 9 (8-16); ASPARTATE AMINO TRANSFERASE 25 U/L (10-37); BILIRUBIN,TOTAL 0.6 MG/DL (0.1-1.0); BLOOD UREA NITROGEN 8 MG/DL (7-18); BUN/CREATININE RATIO 15.4 (6.6-38.0); CALCIUM 7.8 MG/DL (8.5-10.1); CHLORIDE 102 MMOL/L (99-107); CREATININE 0.52 MG/DL (0.40-0.90); GLUCOSE 82 MG/DL (70-104); POTASSIUM 3.1 MMOL/L (3.5-5.1); SODIUM 136 MMOL/L (135-145); TOTAL CARBON DIOXIDE 24.9 MMOL/L (24-32); TOTAL PROTEIN 5.3 G/DL (6.4-8.2); eGFR > 90 ML/MIN
[2022-11-10] MEDS: multivitamins, therapeutics tablet PO SCH (07:33)
[2022-11-10] MEDS: potassium Cl 20 mEq SR tablet PO PRN ×3 (07:33→17:37)
[2022-11-10] MEDS: cholecalciferol (vitamin D3) 1,000 unit (25mcg) tablet PO SCH (07:33)
[2022-11-10] MEDS: pantoprazole 40MG/NS 100ML BAG 100 ML IV SCH (07:33)
[2022-11-10] MEDS: ondansetron/PF 4mg/2ml inj IV PRN ×2 (07:46→17:39)
[2022-11-10] MEDS: piperacillin/tazo 3.375gm/50ml 50 ML IV SCH ×2 (08:26→17:00)
[2022-11-10 10:00] VITALS: BP 149/83
[2022-11-10] MEDS ORDERED: HYDROcodone/acetaminophen 10/325mg tab PO ONE (16:40)
[2022-11-10 18:00] VITALS: BP 136/68
--- NOTE | 2022-11-10 18:17 | NUR ---
Problems reprioritized. Patient report given, questions answered & plan of care reviewed with Prudence.
--- NOTE | 2022-11-10 19:44 | NUR ---
Patient in room [facility]. I have received report from PRATIBHA GANDHI and had the opportunity to ask questions and assume patient care.
[2022-11-10] MEDS: enoxaparin 40mg/0.4ml syringe SUBCUT SCH (21:28)
[2022-11-10 22:00] VITALS: BP 143/80
[2022-11-11] MEDS: piperacillin/tazo 3.375gm/50ml 50 ML IV SCH ×3 (00:28→16:04)
[2022-11-11] MEDS: HYDROmorph/NS 0.2 mg/ml PCA 100 ML IV SCH ×12 (01:00→23:00)
[2022-11-11] MEDS: normal saline 1000ml 1,000 ML IV SCH ×3 (05:22→20:00)
[2022-11-11 06:00] VITALS: BP 151/83
--- NOTE | 2022-11-11 06:36 | NUR ---
Problems reprioritized. Patient report given, questions answered & plan of care reviewed with PRATIBHA GANDHI.
--- NOTE | 2022-11-11 06:43 | NUR ---
Patient in room [facility]. I have received report from Amy and had the opportunity to ask questions and assume patient care.
[2022-11-11] MEDS: K and/or MAG REPLACEMENT MC SCH ×2 (06:46→20:27)
[2022-11-11 07:04] LABS: BASOPHILS % (AUTO) 0.3 % (0-1); EOSINOPHILS # (AUTO) 0.3 X10'3 (0-0.9); EOSINOPHILS % (AUTO) 3.4 % (0-6); HEMATOCRIT 34.2 % (35.0-45.0); HEMOGLOBIN 11.4 g/dl (12.0-16.0); LYMPHOCYTES # (AUTO) 1.6 X10'3 (1.1-4.8); LYMPHOCYTES % (AUTO) 15.9 % (21-51); MEAN CORPUSCULAR HEMOGLOBIN 29.6 PG (27.0-31.0); MEAN CORPUSCULAR HGB CONC 33.3 g/dL (33.0-36.5); MEAN CORPUSCULAR VOLUME 88.8 FL (78-98); MEAN PLATELET VOLUME 7.1 FL (7.4-10.4); MONOCYTES # (AUTO) 1.1 X10'3 (0-0.9); MONOCYTES % (AUTO) 10.8 % (2-12); NEUTROPHILS # (AUTO) 6.8 X10'3 (1.8-7.7); NEUTROPHILS % (AUTO) 69.6 % (42-75); PLATELET COUNT 335 X10'3 (140-440); RED BLOOD COUNT 3.86 X10'6 (4.20-5.60); RED CELL DISTRIBUTION WIDTH 13.3 % (11.5-14.5); WHITE BLOOD COUNT 9.8 X10'3 (4.5-11.0)
[2022-11-11 07:21] LABS: ALANINE AMINOTRANSFERASE 30 U/L (12-78); ALBUMIN/GLOBULIN RATIO 0.6 (1.1-1.5); ALKALINE PHOSPHATASE 49 IU/L (46-116); ANION GAP 9 (8-16); ASPARTATE AMINO TRANSFERASE 23 U/L (10-37); BILIRUBIN,TOTAL 0.6 MG/DL (0.1-1.0); BLOOD UREA NITROGEN 6 MG/DL (7-18); BUN/CREATININE RATIO 11.8 (6.6-38.0); CHLORIDE 102 MMOL/L (99-107); CREATININE 0.51 MG/DL (0.40-0.90); GLUCOSE 86 MG/DL (70-104); POTASSIUM 3.1 MMOL/L (3.5-5.1); SODIUM 135 MMOL/L (135-145); TOTAL CARBON DIOXIDE 23.9 MMOL/L (24-32); TOTAL PROTEIN 5.4 G/DL (6.4-8.2); eGFR > 90 ML/MIN
[2022-11-11] MEDS: cholecalciferol (vitamin D3) 1,000 unit (25mcg) tablet PO SCH (07:32)
[2022-11-11] MEDS: pantoprazole 40MG/NS 100ML BAG 100 ML IV SCH (07:32)
[2022-11-11] MEDS: potassium Cl 20 mEq SR tablet PO PRN ×3 (07:34→20:25)
[2022-11-11] MEDS: multivitamins, therapeutics tablet PO SCH (07:37)
[2022-11-11] MEDS: diatr meglu/diatrizoate 30ml oral sol.-(3 dose) bottle PO SCH ×3 (08:51→15:00)
[2022-11-11 10:00] VITALS: BP 134/78
[2022-11-11] MEDS: PCA waste documentation MC SCH (10:57)
--- NOTE | 2022-11-11 13:51 | NUR ---
Reassessment: Pt remains NPO. Per physical assessment pt with absent bowel sounds. No BM post-op with mild distended abdomen per physician notes. If unable to advance diet soon pt would benefit from nutrition support. Attempted TC to RN however no answer at this time. Will continue to follow closely. Recommendations: 1) Advance to low fiber diet as medically indicated 2) Initiate nutrition support if expected prolonged NPO status; pt day 9 with insufficient nutrient intake; IF unable to utilize gut, recommend TPN using continuous 2:1 Clinimix-E 02/18 with 83.33 mL goal rate with additional 100 mL 20% ILE to run at 8.33 mL/hr for 12 hours/day. To provide 2000 L volume/day, 100 g AA, 400 g dext (2.11 mg/kg/min), and 1960 kcal 3) IF TPN, prealbumin and TG q Monday/; daily scaled weights 4) Bowel care per physician 5) Scaled weight this admit; subsequent weekly scaled weights Addendum: 11/11/22 at [address] Amended: Links added.
[2022-11-11 18:00] VITALS: BP 142/84
--- NOTE | 2022-11-11 18:12 | NUR ---
Problems reprioritized. Patient report given, questions answered & plan of care reviewed with Prudence.
--- NOTE | 2022-11-11 19:14 | NUR ---
Patient in room [facility]. I have received report from PRATIBHA GANDHI and had the opportunity to ask questions and assume patient care.
[2022-11-11] MEDS: enoxaparin 40mg/0.4ml syringe SUBCUT SCH (20:00)
[2022-11-11 22:00] VITALS: BP 128/71
[2022-11-12] MEDS: normal saline 1000ml 1,000 ML IV SCH ×4 (00:32→22:28)
[2022-11-12] MEDS: piperacillin/tazo 3.375gm/50ml 50 ML IV SCH ×3 (00:47→16:28)
[2022-11-12] MEDS: HYDROmorph/NS 0.2 mg/ml PCA 100 ML IV SCH ×12 (01:00→21:00)
[2022-11-12] MEDS: ondansetron/PF 4mg/2ml inj IV PRN (04:56)
[2022-11-12 05:53] LABS: BASOPHILS % (AUTO) 0.5 % (0-1); EOSINOPHILS # (AUTO) 0.3 X10'3 (0-0.9); EOSINOPHILS % (AUTO) 2.8 % (0-6); HEMATOCRIT 32.3 % (35.0-45.0); LYMPHOCYTES # (AUTO) 1.6 X10'3 (1.1-4.8); MEAN CORPUSCULAR HGB CONC 33.9 g/dL (33.0-36.5); MEAN CORPUSCULAR VOLUME 88.4 FL (78-98); MEAN PLATELET VOLUME 7.2 FL (7.4-10.4); MONOCYTES # (AUTO) 0.9 X10'3 (0-0.9); MONOCYTES % (AUTO) 9.3 % (2-12); NEUTROPHILS # (AUTO) 6.8 X10'3 (1.8-7.7); NEUTROPHILS % (AUTO) 70.4 % (42-75); PLATELET COUNT 355 X10'3 (140-440); RED BLOOD COUNT 3.65 X10'6 (4.20-5.60); RED CELL DISTRIBUTION WIDTH 13.4 % (11.5-14.5); WHITE BLOOD COUNT 9.7 X10'3 (4.5-11.0)
--- NOTE | 2022-11-12 06:07 | NUR ---
Problems reprioritized. Patient report given, questions answered & plan of care reviewed with ALLISON RN.
[2022-11-12 06:10] LABS: ALANINE AMINOTRANSFERASE 36 U/L (12-78); ALBUMIN/GLOBULIN RATIO 0.6 (1.1-1.5); ALKALINE PHOSPHATASE 55 IU/L (46-116); ANION GAP 10 (8-16); ASPARTATE AMINO TRANSFERASE 28 U/L (10-37); BILIRUBIN,TOTAL 0.5 MG/DL (0.1-1.0); BLOOD UREA NITROGEN 2 MG/DL (7-18); BUN/CREATININE RATIO 4.1 (6.6-38.0); CHLORIDE 103 MMOL/L (99-107); CREATININE 0.49 MG/DL (0.40-0.90); GLUCOSE 96 MG/DL (70-104); POTASSIUM 3.3 MMOL/L (3.5-5.1); SODIUM 139 MMOL/L (135-145); TOTAL CARBON DIOXIDE 25.9 MMOL/L (24-32); TOTAL PROTEIN 5.4 G/DL (6.4-8.2); eGFR > 90 ML/MIN
--- NOTE | 2022-11-12 07:02 | NUR ---
Patient in room [facility]. I have received report from HERRERA GANDHI and had the opportunity to ask questions and assume patient care.
[2022-11-12 07:09] VITALS: BP 131/73
[2022-11-12] MEDS: K and/or MAG REPLACEMENT MC SCH ×2 (08:00→20:00)
[2022-11-12] MEDS: cholecalciferol (vitamin D3) 1,000 unit (25mcg) tablet PO SCH (09:23)
[2022-11-12] MEDS: multivitamins, therapeutics tablet PO SCH (09:23)
[2022-11-12] MEDS: pantoprazole 40MG/NS 100ML BAG 100 ML IV SCH (09:24)
[2022-11-12 10:00] VITALS: BP 141/69
--- NOTE | 2022-11-12 16:58 | NUR ---
PAGER ID: [phone] MESSAGE: [facility] [id number] re: 360A ISREAL, S PATIENT HAS A K+ OF 3.3 WOULD YOU LIKE ME TO ADD ON THE PREPLACEMENT PROTOCOL. THANKS.
--- NOTE | 2022-11-12 17:40 | NUR ---
PAGER ID: [phone] MESSAGE: [facility] [id number] RE 360F Lilli BACH PATIENT HAS A K+ OF 3.3 WOULD YOU LIKE ME TO ADD THE REPLACEMENT PROTOCOL. THANKS Addendum: 11/12/22 at 1828 by Danish Boss RN MD RESPONDED WITH ORDERS AT THIS TIME
[2022-11-12] MEDS ORDERED: magnesium Cl slow-release 64mg tablet PO PRN (17:45)
[2022-11-12] MEDS ORDERED: magnesium 4gm in 100ml NS 100 ML IV PRN (17:45)
[2022-11-12] MEDS ORDERED: potassium Cl 20 mEq SR tablet PO PRN (17:45)
[2022-11-12] MEDS ORDERED: potassium Cl 40MEQ/1/2NS 520ml 520 ML IV PRN (17:45)
[2022-11-12] MEDS: potassium Cl 20 mEq SR tablet PO PRN ×2 (17:54→21:51)
--- NOTE | 2022-11-12 18:28 | NUR ---
Problems reprioritized. Patient report given, questions answered & plan of care reviewed with GRIFFIN GANDHI.
[2022-11-12 19:00] VITALS: BP 126/77
[2022-11-12] MEDS: enoxaparin 40mg/0.4ml syringe SUBCUT SCH (21:18)
[2022-11-12 22:00] VITALS: BP 148/71
[2022-11-12] MEDS: HYDROcodone/acetaminophen 5mg/325mg tablet PO PRN (22:28)
[2022-11-12] MEDS: LORazepam 0.5 MG tablet PO PRN (22:28)
[2022-11-12] MEDS: PCA waste documentation MC SCH (23:16)
[2022-11-13] MEDS: piperacillin/tazo 3.375gm/50ml 50 ML IV SCH ×4 (00:05→23:52)
[2022-11-13] MEDS: potassium Cl 20 mEq SR tablet PO PRN (02:34)
[2022-11-13] MEDS: HYDROcodone/acetaminophen 5mg/325mg tablet PO PRN ×2 (02:34→14:24)
[2022-11-13] MEDS: LORazepam 0.5 MG tablet PO PRN (03:58)
[2022-11-13] MEDS: HYDROmorphone 1 mg/ml syringe IV PRN ×4 (03:58→20:21)
[2022-11-13 05:57] LABS: POTASSIUM 3.5 MMOL/L (3.5-5.1)
[2022-11-13 07:17] VITALS: BP 119/63
[2022-11-13] MEDS: pantoprazole 40MG/NS 100ML BAG 100 ML IV SCH (07:53)
[2022-11-13] MEDS: cholecalciferol (vitamin D3) 1,000 unit (25mcg) tablet PO SCH (07:58)
[2022-11-13] MEDS: multivitamins, therapeutics tablet PO SCH (07:58)
[2022-11-13] MEDS: K and/or MAG REPLACEMENT MC SCH ×2 (08:00→20:00)
[2022-11-13 11:00] VITALS: BP 137/88
--- NOTE | 2022-11-13 11:50 | NUR ---
PAGER ID: [phone] MESSAGE: [facility] [id number] RE: Lilli BACH PATIENT STATES THE NORCO 5 IS NOT STRONG ENOUGH DID YOU WANT TO ADD NORCO10 FOR 7-10 PAIN? THANKS
--- NOTE | 2022-11-13 13:23 | NUR ---
PAGER ID: [phone] MESSAGE: [facility] [id number] RE: 360A Lilli BACH PATIENT STATES THE NORCO 5 IS NOT STRONG ENOUGH DID YOU WANT TO ADD NORCO10 FOR 7-10 PAIN? THANKS
--- NOTE | 2022-11-13 14:17 | NUR ---
[facility] [id number] RE: 360A ISREAL S PATIENT STATES THE NORCO 5 IS NOT STRONG ENOUGH DID YOU WANT TO ADD NORCO10 FOR 7-10 PAIN? THANKS Addendum: 11/13/22 at 1441 by Danish Boss RN MD RESPONDED AND ORDERS RECEIVED.
[2022-11-13 18:00] VITALS: BP 134/65
[2022-11-13] MEDS: HYDROcodone/acetaminophen 10/325mg tab PO PRN ×2 (18:01→22:17)
--- NOTE | 2022-11-13 18:15 | NUR ---
Patient in room [facility]. I have received report from Orion GANDHI and had the opportunity to ask questions and assume patient care.
--- NOTE | 2022-11-13 19:01 | NUR ---
Problems reprioritized. Patient report given, questions answered & plan of care reviewed with Sloane GANDHI.
[2022-11-13] MEDS: enoxaparin 40mg/0.4ml syringe SUBCUT SCH (20:21)
[2022-11-14] VITALS: BP 131/83
[2022-11-14] MEDS: HYDROmorphone 1 mg/ml syringe IV PRN (02:20)
[2022-11-14 06:00] VITALS: BP 122/64
[2022-11-14 06:27] LABS: MAGNESIUM 2.1 MG/DL (1.5-2.4)
--- NOTE | 2022-11-14 06:43 | NUR ---
Problems reprioritized. Patient report given, questions answered & plan of care reviewed with micheal RN.
[2022-11-14] MEDS: K and/or MAG REPLACEMENT MC SCH (08:00)
[2022-11-14] MEDS: cholecalciferol (vitamin D3) 1,000 unit (25mcg) tablet PO SCH (08:50)
[2022-11-14] MEDS: multivitamins, therapeutics tablet PO SCH (08:50)
[2022-11-14] MEDS: pantoprazole 40MG/NS 100ML BAG 100 ML IV SCH (08:51)
[2022-11-14] MEDS: piperacillin/tazo 3.375gm/50ml 50 ML IV SCH ×2 (08:51→16:00)
[2022-11-14] MEDS: HYDROcodone/acetaminophen 10/325mg tab PO PRN (08:57)
[2022-11-14] MEDS ORDERED: OXYC1TAB17 PO (10:47)
[2022-11-14] MEDS ORDERED: ONDA4TAB12 PO (10:47)
[2022-11-14 11:00] VITALS: BP 112/58
[2022-11-14 11:08] LABS: POTASSIUM 3.6 MMOL/L (3.5-5.1)
[2022-11-14] MEDS: oxyCODONE/APAP 10/325mg tablet PO PRN ×2 (12:01→15:44)
--- NOTE | 2022-11-14 14:14 | NUR ---
F/u 11/14: Pt advanced to clear liquids 11/12 WB then to regular diet WL yesterday PO 75-100% avg meals now having BM's per EMR. Pt to discharge today per gunstock spray unit adjuster. Recommendations: 1) continue regular diet per MD; consider low-fiber diet if regular diet intolerance 2) Bowel care per physician 3) Scaled weight this admit; subsequent weekly scaled weights Addendum: 11/14/22 at [address] Amended: Links added.
--- NOTE | 2022-11-14 17:42 | NUR ---
Patient dischared with new RX, patient new medications were gone over at this time with the patient friend in room. Patient IV had been taken out by another nurse. All education was provided during this time and questions were answered as well. Patient left with all belongings and left in wheel chair to lobby and private vehicle home. patient understands she is to follow up on one weeks time.
== END 2022-11-14 16:10 | disposition home or self-care (01) | DRG 230 ==
LOC: ER 09:17 → ED HOLD 12:21 → SUR 3N 16:31
PROVIDERS: ADMIT Family Medicine; ATTEND Family Medicine
PROC: 8E0W4CZ Robotic Assisted Procedure of Trunk Region, Percutaneous Endoscopic Approach (ICD-10-PCS; 2022-11-02)
PROC: 0D9670Z Drainage of Stomach with Drainage Device, Via Natural or Artificial Opening (ICD-10-PCS; 2022-11-02)
PROC: 0WQF4ZZ Repair Abdominal Wall, Percutaneous Endoscopic Approach (ICD-10-PCS; principal; 2022-11-02 17:53)
PROC: 0DB80ZZ Excision of Small Intestine, Open Approach (ICD-10-PCS; 2022-11-07)
PROC: BW211ZZ Computerized Tomography (CT Scan) of Abdomen and Pelvis using Low Osmolar Contrast (ICD-10-PCS; 2022-11-07)
PROC: 3E0T3BZ Introduction of Anesthetic Agent into Peripheral Nerves and Plexi, Percutaneous Approach (ICD-10-PCS; 2022-11-07)
PROC: 3E0T33Z Introduction of Anti-inflammatory into Peripheral Nerves and Plexi, Percutaneous Approach (ICD-10-PCS; 2022-11-07)
DX: K42.0 Umbilical hernia with obstruction, without gangrene (principal); K63.1 Perforation of intestine (nontraumatic); K65.9 Peritonitis, unspecified; K55.9 Vascular disorder of intestine, unspecified; R18.8 Other ascites; F12.90 Cannabis use, unspecified, uncomplicated; E66.01 Morbid (severe) obesity due to excess calories; E87.6 Hypokalemia; Z80.1 Family history of malignant neoplasm of trachea, bronchus and lung; Z83.3 Family history of diabetes mellitus; Z83.71 Family history of colonic polyps; Z87.891 Personal history of nicotine dependence; Z90.721 Acquired absence of ovaries, unilateral; Z68.41 Body mass index [BMI] 40.0-44.9, adult; Z79.899 Other long term (current) drug therapy
CPT/HCPCS: 36415; 74018; 74176; 74177; 80053; 81001; 81025; 82948; 83605; 83690; 83735; 84132; 85007; 85025; 85610; 87040; 87070; 87081; 93005; 96365; 96375; 99285; A4215; A4333; A4615; A4618; A6253; A6258; A6402; A6407; A6449; A7000; C1758; C9113; C9290; G0378; J0131; J0330; J0360; J0694; J1100; J1170; J1650; J1885; J2060; J2250; J2270; J2274; J2405; J2543; J2704; J2710; J3010; J3360; J3480; J3490; J7030; J7120; Q9963; Q9967; S0020

== ENCOUNTER 2023-03-18 18:52 | Emergency (ER) | payer MEDICAID ==
[~2023-03-18] VITALS: Ht 175.3 cm; Wt 134.1 kg
[~2023-03-18 18:52] MED LIST changes: +CHOL10008 PO; -CIPR2.5D14 RIGHTEYE; -HYDR-4383 PO; +MULT-1219 PO; -ONDA4TAB9 SL; -ONDA8TAB6 PO; -OXYC-134 PO; +OXYC1TAB17 PO
[2023-03-18 19:04] VITALS: BP 124/76
[2023-03-18] MEDS ORDERED: acetaminophen 325mg tablet PO ONE (21:05)
[2023-03-18] MEDS ORDERED: ibuprofen tablet 400 MG TABLET PO ONE (21:05)
[2023-03-18] MEDS ORDERED: ACET-812 PO (21:35)
[2023-03-18] MEDS ORDERED: IBUP-1985 PO (21:35)
== END 2023-03-18 21:44 | disposition home or self-care (01) ==
LOC: ER 18:52
DX: J02.9 Acute pharyngitis, unspecified (principal)
CPT/HCPCS: 87081; 87880; 99283

== ENCOUNTER 2023-06-24 11:43 | Emergency (ER) | payer MEDICAID ==
[~2023-06-24] VITALS: Ht 175.3 cm; Wt 131.0 kg
[~2023-06-24 11:43] MED LIST changes: +ACET-812 PO; +IBUP-1985 PO
[2023-06-24 12:32] VITALS: BP 135/74; PULSE 67; RESP 16; TEMP 98.1; O2SAT 99
[2023-06-24] MEDS ORDERED: azithromycin 250mg tablet PO ONE (13:05)
[2023-06-24] MEDS ORDERED: CefTRIAXone 1000mg IM Kit (w/lidocaine diluent) IM ONE (13:05)
[2023-06-24] MEDS ORDERED: METR-159 PO (13:45)
[2023-06-24] MEDS ORDERED: FLUC150T46 PO (13:45)
[2023-06-24 13:57] LABS: BILIRUBIN,URINE NEGATIVE (Neg); CLARITY,URINE CLEAR (Clear); COLOR,URINE YELLOW (Yellow); GLUCOSE, URINE NEGATIVE (Neg); KETONES,URINE NEGATIVE (Neg); LEUKOCYTE ESTERASE ,URINE TRACE (Neg); NITRITES, URINE NEGATIVE (Neg); OCCULT BLOOD,URINE SMALL (Neg); PH,URINE 5.5 (4.8-8.0); PROTEIN,URINE NEGATIVE (Neg); UROBILINOGEN,URINE 0.2 E.U/dL (0.2-1.0)
[2023-06-24 14:00] LABS: UA COLLECTION TYPE NON-SPECIFIED
[2023-06-24 14:23] LABS: MUCUS STRANDS MODERATE /LPF (Neg); SQUAMOUS EPITHELIAL CELL,UR MANY /LPF (FEW)
[2023-06-24 14:24] LABS: YEAST FEW /HPF (NEGATIVE)
[2023-06-24 14:28] LABS: BACTERIA,URINE FEW /HPF (Neg); RBC,URINE 0-2 /HPF (0-2); WBC,URINE 0-4 /HPF (0-4)
== END 2023-06-24 13:53 | disposition home or self-care (01) ==
LOC: ER 11:44
DX: N89.8 Other specified noninflammatory disorders of vagina (principal); R10.2 Pelvic and perineal pain; L29.2 Pruritus vulvae; Z72.89 Other problems related to lifestyle; Z79.899 Other long term (current) drug therapy
CPT/HCPCS: 81001; 96372; 99283; J0696